=== PATIENT | male | born 1945 | race Caucasian/White ===

== ENCOUNTER 2020-03-05 00:58 | Outpatient (CLI) | payer MEDICARE, SELFPAY ==
[2020-03-05 18:35] LABS: SARS-CoV-2 RNA PCR Negative
== END 2020-03-05 00:59 | disposition home or self-care (01) ==
PROVIDERS: PCP Internal Medicine; Visit Provider Internal Medicine Gastroenterology
DX: Z01.812 Encounter for preprocedural laboratory examination (principal); Z11.59 Encounter for screening for other viral diseases
CPT/HCPCS: 87635; C9803; U0003

== ENCOUNTER 2020-03-07 01:14 | Day surgery (SDC) | payer MEDICARE, SELFPAY ==
[2020-02-28 13:12] VITALS: BMI 26.6
[2020-03-07 08:27] VITALS: BP 110/65; PULSE 71; RESP 18; TEMP 36.7; O2SAT 97
[2020-03-07] MEDS: LACTATED RINGERS 1,000 ML 150 ML IV CONT (08:39)
--- NOTE | 2020-03-07 08:49 | P.HP_ITS ---
H&P: HPI History of Present Illness Date/Time: 03/07/20 08:49 Chief complaint: Hx of Colon Polyps Narrative: Reason for visit colonoscopy. This very pleasant gentleman seen in consultation at request of the primary physician. Impression: Screening and surveillance colonoscopy. The patient's history adenomatous colon polyps. BARRETT. CAD status post CABG x3. HTN. HLD. Recommendation: Colonoscopy. History: This very pleasant gentleman has a history of adenomatous colon polyps. He is here for screening and surveillance colonoscopy. review systems negative. Physical examination: General: very pleasant patient in no acute distress. HEENT: Head was normocephalic sclerae is clear mouth without masses neck was supple. Heart: Rate rhythm regular without S3 or S4. Lungs: CTA. Abdomen: Soft with no guarding or rigidity. Bowel sounds were active. Neurologic: Cranial nerves 2 through 12 intact. No focal defects. No clonus. Musculoskeletal system: Revealed no joint tenderness or swelling no muscle atrophy. Extremities: Reveal no significant edema. Skin: Warm and dry with normal turgor. Mental status: intact. Patient is alert and oriented. Review of Systems Review of Systems: All systems reviewed & are unremarkable except as noted in HPI and below [facility] Family History Family History (Updated 10/30/16 @ 23:56 by DOCTOR UNKNOWN) Sibling Family history of diabetes mellitus in first degree relative, Onset Age: 65 Patient's sister is Patient's brother is Mother Patient's mother is Father Patient's father is Social History Social History Smoking status: Former smoker Second hand tobacco smoke exposure: No Smoking end date: 07/26/04 Alcohol intake: current Gender identity (if verbalized by the patient): Male Meds Home Medications and Allergies Home Medications Medication Instructions Recorded Confirmed Type aspirin 81 mg PO DAILY 02/28/20 03/07/20 History atorvastatin 40 mg PO DAILY 02/28/20 03/07/20 History metoprolol tartrate 25 mg PO DAILY 02/28/20 03/07/20 History multivit with min-folic acid 1 mg PO DAILY 02/28/20 03/07/20 History [Adult One Daily Multivitamin] Allergies Allergy/AdvReac Type Severity Reaction Status Date / Time NO KNOWN DRUG ALLERGIES Allergy Unknown Y Uncoded 03/07/20 08:20 (Class Allergy) Vital Signs Vital Signs - 24 hr 03/07/20 08:27 Temperature 36.7 C Pulse Rate 71 Respiratory Rate 18 Blood Pressure 110/65 Pulse Oximetry 97
[2020-03-07 09:44] VITALS: BP 76/55; PULSE 64; RESP 18; O2SAT 96
--- NOTE | 2020-03-07 09:49 | PM.IMHP ---
H&P: HPI History of Present Illness Date/Time: 03/07/20 09:49 Chief complaint: Hx of Colon Polyps Narrative: Reason for visit colonoscopy. This very pleasant gentleman is here for at the request of the primary physician. The patient was examined and chart was reviewed. Impression: Screening and surveillance colonoscopy. The patient's history adenomatous colon polyps. GERD with history of esophageal ulceration. Controlled with medication. CAD/[place]/CHF status post stent placement x2. HLD. HTN. Recommendation: Colonoscopy. History: This very pleasant gentleman is here for screening and surveillance colonoscopy. His history of adenomatous colon polyps. Patient has a history of reflux disease and esophageal ulcerations. He is presently asymptomatic on pantoprazole b.i.d.. On today's visit I have instructed demonstrated decreased to once a every morning. GI review systems otherwise unremarkable. Physical examination: General: very pleasant patient in no acute distress. HEENT: Head was normocephalic sclerae is clear mouth without masses neck was supple. Heart: Rate rhythm regular without S3 or S4. Lungs: CTA. Abdomen: Soft with no guarding or rigidity. Bowel sounds were active. Neurologic: Cranial nerves 2 through 12 intact. No focal defects. No clonus. Musculoskeletal system: Revealed no joint tenderness or swelling no muscle atrophy. Extremities: Reveal no significant edema. Skin: Warm and dry with normal turgor. Mental status: intact. Patient is alert and oriented. Review of Systems Review of Systems: All systems reviewed & are unremarkable except as noted in HPI and below [facility] Family History Family History (Updated 10/30/16 @ 23:56 by DOCTOR UNKNOWN) Sibling Family history of diabetes mellitus in first degree relative, Onset Age: 65 Patient's sister is Patient's brother is Mother Patient's mother is Father Patient's father is Social History Social History Smoking status: Former smoker Second hand tobacco smoke exposure: No Smoking end date: 07/26/04 Alcohol intake: current Gender identity (if verbalized by the patient): Male Meds Home Medications and Allergies Home Medications Medication Instructions Recorded Confirmed Type aspirin 81 mg PO DAILY 02/28/20 03/07/20 History atorvastatin 40 mg PO DAILY 02/28/20 03/07/20 History metoprolol tartrate 25 mg PO DAILY 02/28/20 03/07/20 History multivit with min-folic acid 1 mg PO DAILY 02/28/20 03/07/20 History [Adult One Daily Multivitamin] Allergies Allergy/AdvReac Type Severity Reaction Status Date / Time NO KNOWN DRUG ALLERGIES Allergy Unknown Y Uncoded 03/07/20 08:20 (Class Allergy) Vital Signs Vital Signs - 24 hr 03/07/20 08:27 Temperature 36.7 C Pulse Rate 71 Respiratory Rate 18 Blood Pressure 110/65 Pulse Oximetry 97
[2020-03-07 09:54] VITALS: BP 86/67; PULSE 64; RESP 13; O2SAT 94
[2020-03-07 10:04] VITALS: BP 103/78; PULSE 57; RESP 14; O2SAT 92
[2020-03-07 10:14] VITALS: BP 119/91; PULSE 63; RESP 14; O2SAT 92
== END 2020-03-07 10:30 | disposition home or self-care (01) ==
PROVIDERS: PCP Internal Medicine; Visit Provider Internal Medicine Gastroenterology
PROC: 0DJD8ZZ Inspection of Lower Intestinal Tract, Via Natural or Artificial Opening Endoscopic (ICD-10-PCS; CPT 45378; principal; 2020-03-07 09:00)
DX: Z12.11 Encounter for screening for malignant neoplasm of colon (principal); D12.4 Benign neoplasm of descending colon; K64.8 Other hemorrhoids; I25.10 Atherosclerotic heart disease of native coronary artery without angina pectoris; I10 Essential (primary) hypertension; E78.5 Hyperlipidemia, unspecified; G47.33 Obstructive sleep apnea (adult) (pediatric); Z95.1 Presence of aortocoronary bypass graft; Z87.891 Personal history of nicotine dependence; Z79.82 Long term (current) use of aspirin
CPT/HCPCS: 45385; 88305; J2001; J2704; J7120

== ENCOUNTER 2021-01-07 06:38 | Outpatient (CLI) | payer MEDICARE, SELFPAY ==
[2021-01-07 07:40] LABS: Basophils Absolute Auto 0.1 K/mm3 (0.0-0.1); Basophils Percent Auto 0.7 % (0.2-1.2); Eosinophils Absolute Auto 0.4 K/mm3 (0-0.3); Eosinophils Percent Auto 5.1 % (0-4.4); Hematocrit 42.8 % (42.0-52.0); Hemoglobin 13.6 g/dL (14.0-18.0); Immature Granulocyte Absolute 0.02 K/mm3 (0.00-0.031); Immature Granulocyte Percent A 0.3 % (0-0.5); Lymphocytes Absolute Auto 1.28 K/mm3 (0.9-3.2); Lymphocytes Percent Auto 17.8 % (18.3-44.2); Mean Corpuscular HGB Conc 31.8 g/dl (32-36); Mean Corpuscular Volume 94.3 fl (80-100); Mean Platelet Volume 11.4 fl (7.4-10.4); Monocytes Absolute Auto 0.7 K/mm3 (0.1-0.6); Neutrophils Absolute Auto 4.8 K/mm3 (1.3-6.7); Neutrophils Percent Auto 66.1 % (45.5-73.1); Platelet Count Result 182 k/mm3 (150-375); Red Blood Count 4.54 M/mm3 (4.6-6.20); Red Cell Distribution Width 13.3 % (11.5-14.5); White Blood Count 7.2 K/mm3 (4.5-10.0)
[2021-01-07 07:48] LABS: Alanine Aminotransferase 16 U/L (4-50); Albumin Level 4.2 g/dL (3.5-5.1); Alkaline Phosphatase 64 U/L (38-126); Anion Gap 9 mmol/L (8-16); Aspartate Amino Transferase 25 U/L (17-59); Bilirubin,Total 0.6 mg/dL (0.2-1.3); Blood Urea Nitrogen 17 mg/dL (9-20); Calcium 9.5 mg/dL (8.4-10.2); Carbon Dioxide 28 mmol/L (22-30); Chloride 106 mmol/L (98-107); Cholesterol 136 mg/dL (0-200); Estimated Glomerular Filt Rate > 60; Glucose 93 mg/dL (75-110); HDL Direct 51 mg/dL; Potassium 4.3 mmol/L (3.4-5.0); Sodium 143 mmol/L (137-145); Triglycerides 78 mg/dL (<150)
[2021-01-07 07:59] LABS: LDL Cholesterol Direct 54 mg/dL
[2021-01-07 08:20] LABS: Prostate Specific Antigen 0.9 ng/mL (< OR = 4.0); Thyroid Stimulating Hormone 0.579 uIU/mL (0.465-4.680)
[2021-01-07 08:55] LABS: Folic Acid > 20.0 ng/mL (2.76->20)
== END 2021-01-07 06:39 | disposition home or self-care (01) ==
PROVIDERS: PCP Internal Medicine; Visit Provider Internal Medicine
DX: I25.10 Atherosclerotic heart disease of native coronary artery without angina pectoris (principal); R53.83 Other fatigue; Z12.5 Encounter for screening for malignant neoplasm of prostate
CPT/HCPCS: 36415; 80053; 80061; 82607; 82746; 84153; 84443; 85025; G0103

== ENCOUNTER 2021-07-08 06:33 | Outpatient (CLI) | payer MEDICARE, SELFPAY ==
[2021-07-08 07:22] LABS: Basophils Percent Auto 0.5 % (0.2-1.2); Eosinophils Absolute Auto 0.1 K/mm3 (0-0.3); Eosinophils Percent Auto 1.7 % (0-4.4); Hematocrit 40.4 % (42.0-52.0); Hemoglobin 13.1 g/dL (14.0-18.0); Immature Granulocyte Absolute 0.02 K/mm3 (0.00-0.031); Immature Granulocyte Percent A 0.3 % (0-0.5); Lymphocytes Absolute Auto 1.45 K/mm3 (0.9-3.2); Lymphocytes Percent Auto 23.1 % (18.3-44.2); Mean Corpuscular HGB Conc 32.4 g/dl (32-36); Mean Corpuscular Hemoglobin 30.5 pg (26-34); Mean Platelet Volume 10.7 fl (7.4-10.4); Monocytes Absolute Auto 0.6 K/mm3 (0.1-0.6); Monocytes Percent Auto 9.5 % (2.6-8.5); Neutrophils Absolute Auto 4.1 K/mm3 (1.3-6.7); Neutrophils Percent Auto 64.9 % (45.5-73.1); Platelet Count Result 198 k/mm3 (150-375); Red Cell Distribution Width 13.8 % (11.5-14.5); White Blood Count 6.3 K/mm3 (4.5-10.0)
[2021-07-08 07:54] LABS: Iron 106 ug/dL (49-181)
[2021-07-08 08:04] LABS: Percent Iron Saturation 34 % (20-50)
[2021-07-12 18:11] LABS: Folic Acid 14.2 ng/mL (2.76->20)
== END 2021-07-08 06:34 | disposition home or self-care (01) ==
PROVIDERS: PCP Internal Medicine; Visit Provider Internal Medicine
DX: D64.9 Anemia, unspecified (principal)
CPT/HCPCS: 36415; 82607; 82746; 83540; 83550; 85025

== ENCOUNTER 2021-12-01 06:43 | Outpatient (CLI) | payer MEDICARE, SELFPAY ==
[2021-12-01 07:23] LABS: Basophils Percent Auto 0.5 % (0.2-1.2); Eosinophils Absolute Auto 0.1 K/mm3 (0-0.3); Eosinophils Percent Auto 1.6 % (0-4.4); Hematocrit 38.7 % (42.0-52.0); Hemoglobin 12.7 g/dL (14.0-18.0); Immature Granulocyte Absolute 0.02 K/mm3 (0.00-0.031); Immature Granulocyte Percent A 0.3 % (0-0.5); Lymphocytes Absolute Auto 1.26 K/mm3 (0.9-3.2); Lymphocytes Percent Auto 16.6 % (18.3-44.2); Mean Corpuscular HGB Conc 32.8 g/dl (32-36); Mean Corpuscular Hemoglobin 30.3 pg (26-34); Mean Corpuscular Volume 92.4 fl (80-100); Mean Platelet Volume 11.1 fl (7.4-10.4); Monocytes Absolute Auto 0.7 K/mm3 (0.1-0.6); Monocytes Percent Auto 9.2 % (2.6-8.5); Neutrophils Absolute Auto 5.4 K/mm3 (1.3-6.7); Neutrophils Percent Auto 71.8 % (45.5-73.1); Platelet Count Result 194 k/mm3 (150-375); Red Blood Count 4.19 M/mm3 (4.6-6.20); Red Cell Distribution Width 13.2 % (11.5-14.5); White Blood Count 7.6 K/mm3 (4.5-10.0)
[2021-12-01 08:09] LABS: Iron 95 ug/dL (49-181)
[2021-12-01 08:19] LABS: Percent Iron Saturation 31 % (20-50)
[2021-12-01 08:53] LABS: Folic Acid > 20.0 ng/mL (2.76->20)
== END 2021-12-01 06:44 | disposition home or self-care (01) ==
LOC: ANHLAB 06:46
PROVIDERS: PCP Internal Medicine; Visit Provider Internal Medicine
DX: D64.9 Anemia, unspecified (principal)
CPT/HCPCS: 36415; 82607; 82746; 83540; 83550; 85025

== ENCOUNTER 2022-02-10 00:10 | Day surgery (SDC) | payer MEDICARE, SELFPAY ==
[2022-01-27 12:55] VITALS: BMI 27.3
[2022-02-10 09:42] VITALS: BP 123/65; PULSE 59; RESP 16; TEMP 36.3; O2SAT 99
[2022-02-10] MEDS: LACTATED RINGERS 1,000 ML 150 ML IV CONT (09:50)
--- NOTE | 2022-02-10 10:03 | PM.IMHP ---
H&P: HPI History of Present Illness Date/Time: 02/10/22 10:03 Chief Complaint: Anemia Narrative: this is a 76-year-old white male patient I am asked to see for an EGD. Patient was filed to have a stable normochromic normocytic anemia. Patient denies any abdominal pain. He has had no bleeding. His bowel habits are normal. He has no history of black or melenic stools. Patient does have a prior history of adenomatous colon polyp removed from the colon in 2019. Follow-up according screening guidelines is added dissipated in several years. He presents today for colonoscopy because of concern over very mild normochromic normocytic anemia. Review of Systems Review of Systems: Review of systems noncontributory. [facility] Past Medical History Medical History Hx of adenomatous colonic polyps Hypertension Family History Family History Sibling Family history of diabetes mellitus in first degree relative, Onset Age: 65 Patient's sister is Patient's brother is Mother Patient's mother is Father Patient's father is Social History Social History Smoking packs per day: 2 Smoking cigarettes per day: 40.0 Years smoked: 30 Smoking pack-years: 60.00 Smoking status: Former smoker Tobacco type: cigarettes Second hand tobacco smoke exposure: No Smoking end date: 07/26/04 Alcohol intake: current Alcohol use details: SOCIALLY Substance use: never Substance use type: does not use Living arrangements: with family Gender identity (if verbalized by the patient): Male Spiritual care concerns: No Meds Home Medications and Allergies Home Medications Medication Instructions Recorded Confirmed Type aspirin 81 mg tablet,delayed 81 mg PO DAILY 02/28/20 02/10/22 History release atorvastatin 40 mg tablet 40 mg PO DAILY 02/28/20 02/10/22 History metoprolol tartrate 25 mg tablet 25 mg PO DAILY 02/28/20 02/10/22 History multivitamin with minerals-folic 1 mg PO DAILY 02/28/20 02/10/22 History acid 0.4 mg tablet (Adult One Daily Multivitamin) Allergies Allergy/AdvReac Type Severity Reaction Status Date / Time No Known Allergies Allergy Verified 02/10/22 09:41 Vital Signs Vital Signs - 24 hr 02/10/22 09:42 Temperature 97.4 F L Pulse Rate 59 L Respiratory Rate 16 Blood Pressure 123/65 Pulse Oximetry 99 Oxygen Delivery Room Air Exam Narrative: Physical exam reveals patient to be alert. Vital signs stable. HEENT exam is unremarkable. Patient is anicteric. Lungs are clear to auscultation and percussion. Heart is without murmur or extra sounds. Abdominal exam bowel sounds are present soft nontender with no hepatosplenomegaly. Digital external rectal exam is normal. Assessment and Plan Assessment and plan (1) Anemia: Code(s): D64.9 - Anemia, unspecified Status: Acute Assessment and Plan: Patient has mild normochromic normocytic anemia. Is been stable over several years time. EGD is requested to exclude organic disease. Further recommendations will be given after endoscopy. (2) Hx of adenomatous colonic polyps: Code(s): Z86.010 - Personal history of colonic polyps Status: Acute Assessment and Plan: Patient has a history of benign adenomatous colon polyp removed from the colon 2019. Plan is for surveillance colonoscopy at least at 5 year intervals in the future. Anticipate follow-up 2024 unless problems develop.
--- NOTE | 2022-02-10 10:24 | P.PNAN_ITS ---
Anes - Initial Pre Proc Eval Procedure: Operation Date: 02/10/22 10:30 Proposed Procedures p Esophagogastroduodenoscopy - Rodrigo Siddiqui MD Date/Time: 02/10/22 10:24 Surgeon: Rodrigo Siddiqui MD Pre Op Diagnosis: anemia Patient Data Age: 76 Gender: M Height: 1.75 m Weight: 80.6 kg Last Vital Signs Temp 97.4 F L 02/10/22 09:42 Pulse 59 L 02/10/22 09:42 Resp 16 02/10/22 09:42 BP 123/65 02/10/22 09:42 Pulse Ox 99 02/10/22 09:42 O2 Del Method Room Air 02/10/22 09:42 Allergies Allergy/AdvReac Type Severity Reaction Status Date / Time No Known Allergies Allergy Verified 02/10/22 09:41 Home Medications Medication Instructions Recorded Confirmed Type aspirin 81 mg tablet,delayed 81 mg PO DAILY 02/28/20 02/10/22 History release atorvastatin 40 mg tablet 40 mg PO DAILY 02/28/20 02/10/22 History metoprolol tartrate 25 mg tablet 25 mg PO DAILY 02/28/20 02/10/22 History multivitamin with minerals-folic 1 mg PO DAILY 02/28/20 02/10/22 History acid 0.4 mg tablet (Adult One Daily Multivitamin) Patient hx anesthesia problems: none Family hx anesthesia problems: none Results Review: All pre-operative results and documents have been reviewed as part of the pre- operative evaluation. [facility] Past Medical History Medical History Hx of adenomatous colonic polyps Hypertension Family History Family History Sibling Family history of diabetes mellitus in first degree relative, Onset Age: 65 Patient's sister is Patient's brother is Mother Patient's mother is Father Patient's father is Social History Social History Smoking packs per day: 2 Smoking cigarettes per day: 40.0 Years smoked: 30 Smoking pack-years: 60.00 Smoking status: Former smoker Tobacco type: cigarettes Second hand tobacco smoke exposure: No Smoking end date: 07/26/04 Alcohol intake: current Alcohol use details: SOCIALLY Substance use: never Substance use type: does not use Living arrangements: with family Gender identity (if verbalized by the patient): Male Spiritual care concerns: No Anes - Eval Final PreProcedure Day of Procedure 02/10/22 10:24 Patient weight: normal Heart: regular rate and rhythm Lungs: clear to auscultation Airway: Mallampati scale class II Neurological: alert and oriented Last oral intake: >/= 8 hours ASA classification: III Emergent: no Anesthetic plan: proceed Anesthesia type and monitoring: general GIVS and standard monitoring Results Review: All pre-operative results and documents have been reviewed as part of the pre- operative evaluation. Informed Consent: The patient's anesthetic plan and its attendant risks and benefits were discussed with the patient/family/POA. Questions were solicited and answers provided to the satisfaction of the patient/family/POA.
[2022-02-10 11:02] VITALS: BP 91/52; PULSE 57; RESP 13; O2SAT 99
[2022-02-10 11:12] VITALS: BP 112/60; PULSE 64; RESP 24; O2SAT 98
[2022-02-10 11:22] VITALS: BP 121/68; PULSE 60; RESP 19; O2SAT 98
== END 2022-02-10 11:30 | disposition home or self-care (01) ==
PROVIDERS: PCP Internal Medicine; Visit Provider Internal Medicine Gastroenterology
PROC: 0DJ08ZZ Inspection of Upper Intestinal Tract, Via Natural or Artificial Opening Endoscopic (ICD-10-PCS; CPT 43235; principal; 2022-02-10 10:30)
DX: D64.9 Anemia, unspecified (principal); Z86.010 Personal history of colon polyps; Z79.82 Long term (current) use of aspirin; I10 Essential (primary) hypertension; Z87.891 Personal history of nicotine dependence
CPT/HCPCS: 43239; 88305; J2001; J2704; J7120

== ENCOUNTER 2023-01-19 06:54 | Outpatient (CLI) | payer MEDICARE, SELFPAY ==
[2023-01-19 07:40] LABS: Alanine Aminotransferase 27 U/L (6-50); Albumin Level 3.8 g/dL (3.5-5.1); Alkaline Phosphatase 67 U/L (38-126); Anion Gap 3 mmol/L (8-16); Aspartate Amino Transferase 31 U/L (17-59); Basophils Percent Auto 0.6 % (0.2-1.2); Bilirubin,Total 0.8 mg/dL (0.2-1.3); Blood Urea Nitrogen 17 mg/dL (9-20); Calcium 8.8 mg/dL (8.4-10.2); Carbon Dioxide 30 mmol/L (22-30); Chloride 107 mmol/L (98-107); Cholesterol 134 mg/dL (0-200); Eosinophils Absolute Auto 0.1 K/mm3 (0-0.3); Eosinophils Percent Auto 2.6 % (0-4.4); Estimated Glomerular Filt Rate > 60; Glucose 101 mg/dL (65-110); HDL Direct 49 mg/dL; Hematocrit 37.3 % (42.0-52.0); Hemoglobin 12.1 g/dL (14.0-18.0); Immature Granulocyte Absolute 0.02 K/mm3 (0.00-0.031); Immature Granulocyte Percent A 0.4 % (0-0.5); Mean Corpuscular HGB Conc 32.4 g/dl (32-36); Mean Corpuscular Hemoglobin 30.3 pg (26-34); Mean Corpuscular Volume 93.3 fl (80-100); Mean Platelet Volume 11.5 fl (7.4-10.4); Monocytes Absolute Auto 0.7 K/mm3 (0.1-0.6); Monocytes Percent Auto 13.2 % (2.6-8.5); Neutrophils Absolute Auto 3.2 K/mm3 (1.3-6.7); Neutrophils Percent Auto 63.2 % (45.5-73.1); Platelet Count Result 185 k/mm3 (150-375); Potassium 4.1 mmol/L (3.4-5.0); Red Cell Distribution Width 13.5 % (11.5-14.5); Sodium 140 mmol/L (137-145); Triglycerides 62 mg/dL (<150)
[2023-01-19 07:51] LABS: LDL Cholesterol Direct 66 mg/dL
[2023-01-19 08:08] LABS: Thyroid Stimulating Hormone 0.714 uIU/mL (0.465-4.680)
== END 2023-01-19 06:55 | disposition home or self-care (01) ==
PROVIDERS: PCP Internal Medicine; Visit Provider Internal Medicine
DX: R53.83 Other fatigue (principal); I25.10 Atherosclerotic heart disease of native coronary artery without angina pectoris; G47.30 Sleep apnea, unspecified; I10 Essential (primary) hypertension
CPT/HCPCS: 36415; 80053; 80061; 84443; 85025